=== PATIENT | male | born 1995 | race Caucasian/White ===

== ENCOUNTER 2019-07-27 16:53 | Emergency (ER) | payer BC ==
[~2019-07-27] VITALS: Ht 182.9 cm; Wt 127.0 kg
[2019-07-27 17:15] LABS: HEMATOCRIT 44.6 % (42.0-52.0); HEMOGLOBIN 15.4 gm/dL (14.0-18.0); MCHC 34.5 g/dL (28.0-37.0); MCV 84.1 fL (80.0-100.0); MPV 8.5 fl. (7.2-11.1); NUCLEATED RBCS 0 /100WBC; PLATELET COUNT* 292 thou/uL (150-400); RDW-CV 14.3 % (10.5-14.5)
[2019-07-27 17:25] LABS: ANION GAP 12 mmol/L (7-16); BUN 14 mg/dL (7-18); CHLORIDE 101 mmol/L (98-107); CO2 26 mmol/L (21-32); CREATININE 1.2 mg/dL (0.6-1.3); GLUCOSE 129 mg/dL (70-99); POTASSIUM 3.3 mmol/L (3.5-5.1); SODIUM 139 mmol/L (136-145)
[2019-07-27 17:35] LABS: ABSOLUTE LYMPHOCYTES 2.9 thou/uL (0.8-5.3); ABSOLUTE MONOCYTES 0.6 thou/uL (0.0-1.2); ABSOLUTE NEUTROPHILS 17.4 thou/uL (1.6-8.1); PLATELET ESTIMATE ADEQUATE
[2019-07-27 17:37] LABS: ALBUMIN 4.6 g/dL (3.4-5.0); ALKALINE PHOSPHATASE 83 U/L (46-116); NT-PRO BRAIN NAT PEPTIDE < 5 pg/mL (<300); SGOT 17 U/L (15-37); SGPT 34 U/L (30-65); TOTAL BILIRUBIN 0.5 mg/dL (<0.1-1.0); TOTAL PROTEIN 8.2 g/dL (6.4-8.2)
[2019-07-27 17:38] LABS: APTT 26.5 Seconds (25.0-31.3); PROTIME 10.7 Seconds (9.20-11.50)
[2019-07-27 18:35] VITALS: BP 144/72
--- NOTE | 2019-07-29 11:50 | EKG ---
[place] [address] ELECTROCARDIOGRAM REPORT Name: CLAUDIAANN POLO [facility]andez[facility] [id number] Admission: 07/27/19 Attend Phys: Discharge: 07/27/19 Date of : 89 Date of Service: 07/27/191658 Report #: [id number] THIS REPORT FOR: //name// [facility] ED Test Date: 2019-07-27 Test Time: 16:59:24 Pat Name: ANN TAYLOR Department: Room: Gender: Manager Sales: TRUMAN : 1995 Requested By: Alfonso Ramos Order Number: [id number] MD: Edmundo Sharma Measurements Intervals [place] Rate: 92 P: 59 MO: 162 QRS: 21 QRSD: 109 T: 6 QT: 365 QTc: 452 Interpretive Statements Sinus rhythm nonspecific t wave changes No previous ECG available for comparison Electronically Signed On 07-29-2019 11:48:16 CDT by Edmundo Sharma [email or web address] <ELECTRONICALLY SIGNED> By: Edmundo Sharma MD, [facility] 07/29/19 [id number] Edmundo Sharma MD, FAC /EPI
== END 2019-07-27 18:36 | disposition home or self-care (01) ==
LOC: M.ERS 16:53
PROVIDERS: Family Medicine
DX: R42 Dizziness and giddiness (principal); R11.2 Nausea with vomiting, unspecified; Z90.89 Acquired absence of other organs